=== PATIENT | female | born 2000 | race Asian ===

== ENCOUNTER 2018-01-13 16:43 | Emergency (ER) | payer OTHER ==
--- NOTE | 2018-01-13 18:36 | RAD ---
Indication: Chest pain. 2 views of the chest demonstrates no mediastinal shift. Heart is of normal size and configuration. Lung pate appear clear. IMPRESSION: No active cardiopulmonary disease is noted.
[2018-01-13 19:15] LABS: ABS Basophils 0 10^3/ul (0-0.2); ABS Eosinophils 0.1 10^3/ul (0-0.6); ABS Lymphocytes 3.3 10^3/ul (1.0-4.8); ABS Monocytes 0.5 10^3/ul (0-0.8); ABS Neutrophils 3.4 10^3/ul (1.5-7.7); ABS Nucleated RBC 0 10^3/ul; Eosinophil % 0.9 % (0-6); Hematocrit 38 % (35-47); Hemoglobin 12.9 g/dl (12.0-16.0); Lymphocyte % 45.8 % (25-47); Mean Corpuscular HGB Conc 34 g/dl (31-36); Mean Corpuscular Hemoglobin 29 pg (27-31); Mean Corpuscular Volume 86 fL (80-97); Mean Platelet Volume 8 um3 (7.4-10.4); Nucleated Red Blood Cells % 0.1; Platelet Count 264 10^3/ul (150-450); Red Blood Count 4.48 10^6/ul (4.0-5.4); Red Cell Distribution Width 12 % (10.5-15); White Blood Count 7.3 10^3/ul (3.5-10.8)
[2018-01-13] MEDS ORDERED: Ibuprofen TAB* 600 MG PO ONE (19:45)
--- NOTE | 2018-01-13 20:07 | ED ---
HPI Chest Pain - HPI Summary HPI Summary: 17-year-old female presents with chest pain since this morning. She states that it started in the center of the chest and feels like a pressure. She states the pain is constant. She states the pain is worse when she tries her to move. She states she does not exercise but started 3 days ago. She admits to occasional shortness of breath. She is on control. She denies any recent travel. She denies any family history of blood clots. She denies any pain or swelling in her calf muscle. She denies any palpitations. She denies any recent illness. She denies any fever or cough. She denies abdominal pain nausea or vomiting. She has never had this before. She has no medical conditions. She denies any family history of cardiac disease. She has not taken anything for her symptoms. She states pain resolved 3 hours ago. - History of Current Complaint Chief Complaint: EDChestWallPain Time Seen by Provider: 01/13/18 18:27 Pain Intensity: 2 - Allergy/Home Medications Allergies/Adverse Reactions: Allergies Allergy/AdvReac Type Severity Reaction Status Date / Time No Known Allergies Allergy Verified 01/13/18 16:46 PMH/Surg Hx/FS Hx/Imm Hx Endocrine/Hematology History: Denies: Hx Anticoagulant Therapy Cardiovascular History: Denies: Hx Hypertension Respiratory History: Denies: Hx Asthma Infectious Disease History: No Infectious Disease History: Denies: Traveled Outside the [place] in Last 30 Days - Family History Known Family History: Negative: Cardiac Disease, Blood Disorder - Social History Alcohol Use: None Substance Use Type: Reports: None Smoking Status (MU): Never Smoked Tobacco Review of Systems Negative: Fever Positive: Chest Pain Positive: Shortness Of Breath. Negative: Cough Negative: Abdominal Pain All Other Systems Reviewed And Are Negative: Yes Physical Exam Triage Information Reviewed: Yes Vital Signs On Initial Exam: Initial Vitals Temp Pulse Resp BP Pulse Ox 99.1 F 79 16 133/91 98 01/13/18 16:47 01/13/18 16:47 01/13/18 16:47 01/13/18 16:47 01/13/18 16:47 Vital Signs Reviewed: Yes Appearance: Positive: Well-Appearing Skin: Positive: Warm, Dry Head/Face: Positive: Normal Head/Face Inspection Eyes: Positive: Normal, EOMI, DARWIN, Conjunctiva Clear ENT: Positive: Normal ENT inspection, Pharynx normal, TMs normal Respiratory/Lung Sounds: Positive: Clear to Auscultation, Breath Sounds Present , Other - reproducible chest pain Cardiovascular: Positive: Normal, RRR Abdomen Description: Positive: Nontender, Soft Bowel Sounds: Positive: Present Musculoskeletal: Positive: Normal. Negative: Ramiro Sign Left, Ramiro Sign Right Neurological: Positive: Normal Psychiatric: Positive: Normal Diagnostics - Vital Signs Vital Signs Temp Pulse Resp BP Pulse Ox 01/13/18 19:00 66 14 115/81 99 01/13/18 18:45 78 12 100 01/13/18 18:44 115/81 01/13/18 16:47 99.1 F 79 16 133/91 98 - Laboratory Lab Results: Lab Results 01/13/18 01/13/18 01/13/18 Range/Units 19:03 19:03 19:03 WBC 7.3 (3.5-10.8) 10^3/ul RBC 4.48 (4.0-5.4) 10^6/ul Hgb 12.9 (12.0-16.0) g/dl Hct 38 (35-47) % MCV 86 (80-97) fL MCH 29 (27-31) pg MCHC 34 (31-36) g/dl RDW 12 (10.5-15) % Plt Count 264 (150-450) 10^3/ul MPV 8 (7.4-10.4) um3 Neut % (Auto) 46.3 (38-83) % Lymph % (Auto) 45.8 (25-47) % [place] % (Auto) 6.5 (0-7) % Eos % (Auto) 0.9 (0-6) % Baso % (Auto) 0.5 (0-2) % Absolute Neuts (auto) 3.4 (1.5-7.7) 10^3/ul Absolute Lymphs (auto) 3.3 (1.0-4.8) 10^3/ul Absolute Monos (auto) 0.5 (0-0.8) 10^3/ul Absolute Eos (auto) 0.1 (0-0.6) 10^3/ul Absolute Basos (auto) 0 (0-0.2) 10^3/ul Absolute Nucleated RBC 0 10^3/ul Nucleated RBC % 0.1 D-Dimer, Quantitative < 200 (Less Than 230) ng/mL Sodium 135 (133-145) mmol/L Potassium 3.7 (3.5-5.0) mmol/L Chloride 104 (101-111) mmol/L Carbon Dioxide 24 (22-32) mmol/L Anion Gap 7 (2-11) mmol/L BUN 11 (6-24) mg/dL Creatinine 0.71 (0.51-0.95) mg/dL Est GFR ( Amer) 136.4 (>60) Est GFR (Non-Af Amer) 106.0 (>60) BUN/Creatinine Ratio 15.5 (8-20) Glucose 98 (70-100) mg/dL Calcium 9.8 (8.6-10.3) mg/dL Total Bilirubin 0.20 (0.2-1.0) mg/dL AST 13 (13-39) U/L ALT 8 (7-52) U/L Alkaline Phosphatase 44 (34-104) U/L Troponin I 0.00 (<0.04) ng/mL Total Protein 7.4 (6.4-8.9) g/dL Albumin 4.4 (3.2-5.2) g/dL Globulin 3.0 (2-4) g/dL Albumin/Globulin Ratio 1.5 (1-3) Beta HCG, Quant < 0.60 mIU/mL Result Diagrams: 01/13/18 19:03 01/13/18 19:03 Lab Statement: Any lab studies that have been ordered have been reviewed, and results considered in the medical decision making process. - Radiology chest Xray Interpretation: No Acute Changes Radiology Interpretation Completed By: Radiologist - EKG No standard instances Cardiac Rate: NL EKG Rhythm: Sinus Rhythm ST Segment: Normal EKG Interpretation: normal sinus rhythm Chest Pain Course/Dx - Course Course Of Treatment: 17-year-old female presents with chest pain since this morning. She states that his knees in the center of the chest and feels like a pressure. She states the pain is constant. She states the pain is worse when she tries her. She states she does not exercise but started 3 days ago. She admits to occasional shortness of breath. She is on control. She denies any palpitations. She denies any recent illness. She denies any fever or cough. She denies abdominal pain nausea or vomiting. She has never had this before. She has no medical conditions. She denies any family history of cardiac disease. She has not taken anything for her symptoms. On exam his reproducible chest pain. Lungs clear to auscultation. Heart regular rate and rhythm. EKG normal. D-dimer negative. Troponin negative. will treat with ibuprofen. Patient understands and agrees with plan. - Chest Pain Differential Diagnosis/HQI/PQRI: Acute NM, Chest Wall, GI Disease, Pulmonary Embolism - Diagnoses Provider Diagnoses: Chest pain Discharge - Discharge Plan Condition: Good Disposition: HOME Patient Education Materials: Chest Wall Pain (ED) Referrals: [facility] - Brian ZIMMERMAN [Primary Care Provider] - Additional Instructions: Take ibuprofen every 6 hours for pain Follow up with Brian within 5 days Return to ED if develop any new or worsening symptoms
[2018-01-13 20:19] VITALS: BP 102/47
== END 2018-01-13 20:18 | disposition home or self-care (01) ==
LOC: ED 16:43
DX: R07.9 Chest pain, unspecified (principal)
CPT/HCPCS: 36415; 71046; 80053; 84484; 84702; 85025; 85379; 93005; 99282; A9270-GY